=== PATIENT | male | born 1975 | race Caucasian/White ===

== ENCOUNTER 2025-06-02 19:51 | Inpatient (IN) | payer OTHER, SELFPAY ==
[2025-06-02 19:52] VITALS: BP 149/90; PULSE 69; RESP 18; TEMP 37; O2SAT 97; BMI 37.4
[2025-06-02 20:12] LABS: Mucous, Urine 0 SEEN /hpf (<or=2+); Squamous Epithelial Cells - UA 0 SEEN /hpf (0-5)
[2025-06-02 20:13] LABS: Hematocrit 42.7 % (40-54); Hemoglobin 15.1 g/dL (13.0-16.5); Immature Granulocytes Count 0.020 X10^3/uL (0.0-0.0); Mean Corp Hgb Conc 35.4 g/dL (32-36); Mean Corpuscular Volume 85.9 fL (80-94); Mean Platelet Vol. 10.2 fl (6.2-12.0); NRBC Flagged by Analyzer 0 % (0-5); Platelet Count 202 K/mm3 (150-450); RBC Distribution Width CV 12.8 % (11.6-14.6); RBC Distribution Width SD 39.7 fl (35.1-43.9); Red Blood Count 4.97 M/mm3 (4.6-6.2); White Blood Count 6.6 K/mm3 (4.4-11.0)
[2025-06-02 20:33] LABS: AST(SGOT) 111 U/L (<=37); Alanine Aminotransfer ALT/SGPT 134 U/L (<=46); Albumin, Serum 4.7 g/dL (3.5-5.0); Alkaline Phosphatase 95 U/L (40-129); Anion Gap 12 (5-15); BUN 25 mg/dL (4-19); BUN/Creat Ratio 29.0 RATIO (10-20); Calcium,Total 9.6 mg/dL (7.6-11.0); Carbon Dioxide 27.4 mmol/L (21.0-32.0); Chloride 102 mmol/L (98-108); Estimated Creatinine Clearance 87.04 ml/min (50-250); Globulin 3.1 g/dL (2.2-4.2); Glucose 147 mg/dL (70-99); Lipase 59 U/L (13-75); Potassium 3.9 mmol/L (3.3-5.1)
--- NOTE | 2025-06-02 20:40 | US_ITS ---
PROCEDURE: GALLBLADDER 06/02/2025 REASON FOR EXAM: PAIN TECHNIQUE: Procedure Code: USGB Modality: US Procedure: GALLBLADDER FINDINGS: Liver: Diffuse increased echogenicity throughout the liver likely represents fatty infiltration. The liver is normal in size, without a focal lesion. Gallbladder: At least 1 shadowing stone is noted within the gallbladder. No gallbladder wall thickening. Common bile duct: 3.4 mm in diameter, within normal limits . Pancreas: Unremarkable. Other: The right kidney is normal in size, shape, and echotexture, without a focal lesion nor hydronephrosis. US/Gallbladder IMPRESSION: Cholelithiasis. Fatty liver. Reading Location: [id number]
--- NOTE | 2025-06-02 20:40 | ED.VIS.GI ---
HPI HPI - GI History of Present Illness Chief Complaint: Abd Pain Detail of Chief Complaint: Abdominal pain Informant: patient Narrative Narrative: Patient presents with abdominal pain that started around 6:30 PM after eating a meal. Patient described nausea and dry heaves. Has had intermittently pain after eating spicy greasy foods. The pain at times would radiate up into his chest. Patient has had prior appendectomy. Denies any fevers. He has history of hypertension and high cholesterol. PFSH PFSH Allergy/AdvReac Type Severity Reaction Status Date / Time No Known Allergies Allergy Verified 06/02/25 19:54 Social History Smoking Status: Never smoker ROS ROS ED Review of Systems ROS Unobtainable: other Constitutional Constitutional ED: Reports lethargy; Denies chills, fever(s), sweats or weight loss Eyes Eyes: Denies blurry vision, change in vision or diplopia ENT ENT ED: Denies rhinorrhea or sore throat Cardiovascular Cardiovascular: Reports chest pain; Denies orthopnea or racing heartbeat Respiratory/Chest Respiratory/Chest: Denies cough, dyspnea, dyspnea on exertion, orthopnea or sputum Gastrointestinal Gastrointestinal: Reports abdominal pain and nausea; Denies diarrhea or vomiting Genitourinary Genitourinary ED: Denies dysuria, hematuria or urinary frequency Musculoskeletal Musculoskeletal: Denies arthralgias, back pain, myalgias or neck pain Integumentary Denies abscess, Abrasions or rash Neurologic Neurologic: Denies headache(s) or weakness Psychiatric Psychiatric: Denies anxiety, depression or suicidal thoughts Endocrine Endocrinology: Denies polydipsia, polyphagia or polyuria Hematologic/Lymphatic Hematologic/Lymphatic: Denies easy bleeding, easy bruising or lymphadenopathy Allergic/Immunologic Allergic/Immunologic ED: Denies mouth swelling, tongue swelling or urticaria EXAM Physical Exam Const Vital Signs: 06/02/25 19:52 06/02/25 21:57 06/02/25 22:00 Temperature 98.6 F Temperature Source Temporal Pulse Rate 69 Respiratory Rate 18 Blood Pressure 149/90 H 133/84 H Blood Pressure Mean 109 97 Pulse Ox 97 98 96 Oxygen Delivery Method Room Air 06/02/25 22:15 06/02/25 22:30 06/02/25 23:08 Temperature Temperature Source Pulse Rate 78 Respiratory Rate 17 Blood Pressure 122/77 H Blood Pressure Mean 91 Pulse Ox 94 95 100 Oxygen Delivery Method Positive well nourished and well developed General Appearance ED: well developed and NAD HEENT Reports TM's clear and moist mucous membranes normocephalic and atraumatic; Negative for trauma or tenderness Tympanic Membrane ED: Yes TM's clear Eyes PERRL and EOMs intact bilaterally General Eye ED: Negative for pale conjunctiva or scleral icterus Neck no lymphadenopathy, supple and no JVD General: Negative for tenderness Chest Wall inspection of chest normal and palpation of chest normal Chest: Negative for tenderness Resp normal respiratory effort and clear to auscultation bilaterally Effort and Inspection: Negative for respiratory distress or pain with movement Auscultation: Negative for rhonchi, wheezes or diminished lung sounds Cardio regular rate, regular rhythm, S1 normal heart sound, S2 normal heart sound and no murmurs Peripheral Pulses: pulses 2+ throughout GI normal to inspection, nondistended, normoactive bowel sounds, soft to palpation, non-tender and no masses GI Narrative: Tenderness palpation over the right upper quadrant with some guarding. Also some mid abdomen tenderness on exam. No rebound or rigidity or peritoneal signs. Back/Spine no CVA tenderness and no thoracic nor lumbar tenderness Extremity normal to inspection General Extremety ED: Negative for edema General Extremity: Negative for edema Neuro oriented x3, CN's II-XII intact bilaterally, no sensory deficits noted and gait normal Sensorium / Orientation: awake, alert, oriented to person, oriented to place and oriented to time Motor Exam: strength 5/5 throughout and strength abnormal Psych mental status grossly normal Skin no rashes or lesions noted and no wounds MDM MDM MDM Narrative Medical decision making narrative: Patient presents with abdominal pain after eating. Similar episodes in the past. No fever. Has had vomiting and dry heaves. IV line established. Medicated with morphine and Zofran. CBC with differential obtained showed white count 6.6 with hemoglobin 15 and platelet count of 202. Chemistries unremarkable. LFTs show total bilirubin of 0.64 with an AST of 111 and ALT of 134. Troponin less than 6. EKG obtained on arrival showed a sinus rhythm with ventricular rate of 73 bpm with no acute ST segment changes. Urinalysis was normal. Gallbladder ultrasound initially obtained showed gallstones and no other abnormalities. CT scan of the abdomen pelvis with IV contrast showed cholelithiasis with Michael cholecystic edema and recommended correlation clinically for cholecystitis. Patient also had increased small bowel fluid which is nonspecific and can be seen with enteritis related dysmotility or or malabsorption or ileus. Case discussed with general surgeon on-call Dr. Cartagena who will admit patient to the hospital. Lab Data Attestation: I reviewed the patient's lab results. Labs: Laboratory Results - last 24 hr 06/02/25 06/02/25 20:05 20:55 WBC 6.6 RBC 4.97 Hgb 15.1 Hct 42.7 MCV 85.9 MCH 30.4 MCHC 35.4 RDW Std Deviation 39.7 RDW Coeff of Craig 12.8 Plt Count 202 MPV 10.2 Immature Gran % (Auto) 0.300 Neut % (Auto) 58.2 Lymph % (Auto) 30.8 [place] % (Auto) 8.4 Eos % (Auto) 1.4 Baso % (Auto) 0.9 Absolute Neuts (auto) 3.8 Absolute Lymphs (auto) 2.02 Nucleated RBC % 0 Sodium 141 Potassium 3.9 Chloride 102 Carbon Dioxide 27.4 Anion Gap 12 BUN 25 H Creatinine 0.86 Estim Creat Clear Calc 87.04 Est GFR (MDRD) Non-Af 106 BUN/Creatinine Ratio 29.0 H Glucose 147 H Calcium 9.6 Total Bilirubin 0.64 AST 111 H ALT 134 H Alkaline Phosphatase 95 Troponin T High Sens < 6 Total Protein 7.9 Albumin 4.7 Globulin 3.1 Albumin/Globulin Ratio 1.5 Lipase 59 57 Urine Color Yellow Urine Clarity Clear Urine pH 6.0 Ur Specific [place] 1.025 Urine Protein 15 H Urine Glucose (UA) Normal Urine Ketones Negative Urine Occult Blood Negative Urine Nitrite Negative Urine Bilirubin Negative Urine Urobilinogen Normal Ur Leukocyte Esterase Negative Urine RBC 0-5 SEEN Urine WBC 0-5 SEEN Ur Squamous Epith Cells 0 SEEN Urine Bacteria 0 SEEN Urine Mucus 0 SEEN Radiography Diagnostic Testing: Clinical Impression(s) from Imaging Studies Gallbladder Ultrasound 06/02/25 20:40 IMPRESSION: Cholelithiasis. Fatty liver. Reading Location: [id number] Abdomen/Pelvis CT 06/02/25 22:30 IMPRESSION: 1. Cholelithiasis with mild pericholecystic edema. Correlate clinically for signs of cholecystitis. 2. Increased small bowel fluid, which is nonspecific and can be seen with enteritis related dysmotility, malabsorption, or an ileus. 3. Colonic diverticulosis without signs of diverticulitis. Reading Location: [id number] Discharge Plan Dx/Rx/DC Orders Clinical Impression: Abdominal pain, Cholelithiasis, Ileus Disposition Disposition: Acute Care Hospital [facility], [place]
--- NOTE | 2025-06-02 20:41 | EKG12_ITS ---
Test Reason : DYSRHYTHMIA Blood Pressure : */* mmHG Vent. Rate : 73 BPM Atrial Rate : 73 BPM P-R Int : 158 ms QRS Dur : 90 ms QT Int : 398 ms P-R-T Axes : 53 21 7 degrees QTcB Int : 438 ms Normal sinus rhythm Inferior infarct , age undetermined Abnormal ECG Confirmed by GUILLE PALACIOS, SHEILA ([id number]), tape editor BEATRIZ TAFOYA ([id number]) on 06/06/2025 6:31:09 AM Referred By: Confirmed By: SHEILA HAN MD
[2025-06-02 20:43] LABS: Color, Urine Yellow (Yellow); Glucose, Dipstick Normal (Normal); Ketone-Dipstick Negative (Negative); Leukocyte Esterase-Dipstick Negative /ul (Negative); Nitrite-Dipstick Negative (Negative); Occult Blood-Urine Negative /ul (Negative); Protein-Dipstick 15 mg/dl (Negative); Specific Gravity, Urine 1.025 (1.002-1.030); Urine Bilirubin Dipstick Negative (Negative)
[2025-06-02] MEDS: 0.9% Normal Saline (1000mL) 1,000 ML 125 ML IV (20:53)
[2025-06-02 21:01] LABS: Red Blood Cells-Urine 0-5 SEEN /hpf (0-5)
[2025-06-02 21:25] LABS: Lipase 57 U/L (13-75)
[2025-06-02 21:38] LABS: Troponin T High Sensitivity < 6 ng/L (<=22)
[2025-06-02 21:57] VITALS: O2SAT 98
[2025-06-02 22:00] VITALS: BP 133/84; O2SAT 96
[2025-06-02 22:15] VITALS: O2SAT 94
[2025-06-02 22:30] VITALS: BP 122/77; PULSE 78; RESP 17; O2SAT 95
--- NOTE | 2025-06-02 22:30 | CT_ITS ---
PROCEDURE: ABDOMEN/PELVIS W IV CONT ONLY 06/02/2025 REASON FOR EXAM: ABDOMINAL PAIN TECHNIQUE: Procedure Code: [id number] Modality: CT Procedure: ABDOMEN/PELVIS W IV CONT ONLY Coronal and Sagittal reconstruction series were provided. CONTRAST: Isovue 370 VOLUME: 85 mL One or more dose reduction techniques were used (e.g., Automated exposure control, adjustment of the mA and/or kV according to patient size, use of iterative reconstruction technique. RADIATION DOSE SUMMARY: CTDlvol: 9.97, 13.26 mGy DLP: 729 mGycm COMPARISON: None. FINDINGS: LUNG BASES: No pleural effusion. Mild atelectasis bilaterally. LIVER: Few small hypodense lesions, the largest is 0.3 cm, too small to definitively characterize. GALLBLADDER: Few calcified stones with mild pericholecystic edema. BILE DUCTS: No ductal dilation. PANCREAS: Unremarkable. SPLEEN: Unremarkable. ADRENAL GLANDS: Unremarkable. KIDNEYS: The kidneys enhance symmetrically. Hypodense 0.7 cm focus in the upper right kidney, likely a cyst. No hydronephrosis or hydroureter. STOMACH AND BOWEL: Normal caliber small bowel with increased fluid distally. No obstruction or perforation. No wall thickening. Colonic diverticulosis. No CT evidence of colitis or acute diverticulitis. APPENDIX: Surgical clips along the cecal tip, query prior appendectomy. RETRO/PERITONEUM: No free fluid. No free air. LYMPH NODES: No lymphadenopathy. PELVIC ORGANS: Mild prostatic enlargement, indenting on the base of the urinary bladder. The urinary bladder otherwise appears normal. VASCULATURE: No aortic aneurysm. ABDOMINAL WALL AND SOFT TISSUES: Small fat-containing left inguinal hernia. BONES: No fracture or suspicious osseous abnormality. CT/Abdomen/Pelvis W IV Cont ONLY IMPRESSION: 1. Cholelithiasis with mild pericholecystic edema. Correlate clinically for s igns of cholecystitis. 2. Increased small bowel fluid, which is nonspecific and can be seen with ente ritis related dysmotility, malabsorption, or an ileus. 3. Colonic diverticulosis without signs of diverticulitis. Reading Location: [facility]
[2025-06-02 23:08] VITALS: O2SAT 100
[2025-06-03] VITALS (18 sets, daily range): BP systolic 122–149; BP diastolic 77–96; PULSE 65–79; RESP 14–18; TEMP 36.4–37; O2SAT 90–100; BMI 34.2
[2025-06-03] MEDS: Piperacil/Tazobactam 3.375 GM in 0.9% Normal Saline (50mL MB+) 50 ML IV (01:48)
[2025-06-03] MEDS: 0.9% Normal Saline (1000mL) 1,000 ML 100 ML IV ×2 (07:01→17:15)
--- NOTE | 2025-06-03 07:20 | PCM.HP.STD ---
HPI - General General Date of Admission: 06/03/25 HPI Narrative ABE SMALLWOOD, is a 49 M who presents with upper abdominal pain. Patient notes that started last night but he does say he has been having episodes of this pain and he had an episode recently on Friday where he did not feel well on Friday. He does report nausea with dry heaving [facility], [facility] Medical History (Updated 06/03/25 @ 00:39 by Pete Andrew) Hypertension Home Medications ?Medication ?Instructions ?Recorded ?Last Taken ?Type amoxicillin 500 mg capsule 500 mg PO BID sinus infection 06/02/25 06/02/25 History Allergy/AdvReac Type Severity Reaction Status Date / Time No Known Allergies Allergy Verified 06/02/25 19:54 Surgical History (Updated 06/03/25 @ 00:39 by Pete Andrew) History of appendectomy Social History Smoking Status: Never smoker ROS Constitutional Constitutional: Denies anorexia, chills, fatigue or fever(s) Eyes Eyes: Denies blurry vision ENT HEENT: Denies abnormal hearing Cardiovascular Cardiovascular: Denies chest pain Respiratory/Chest Respiratory/Chest: Denies cough or dyspnea Gastrointestinal Gastrointestinal: Reports abdominal pain, nausea and vomiting Genitourinary Genitourinary: Denies change in urinary stream Musculoskeletal Musculoskeletal: Denies abnormal gait Integumentary Integumentary: Denies jaundice or new lesions Neurologic Neurologic: Denies abnormal gait Psychiatric Psychiatric: Denies anxiety Endocrine Endocrinology: Denies flushing Vital Signs Vital Signs Vital Signs: 06/02/25 19:52 06/02/25 21:57 06/02/25 22:00 Temperature 98.6 F Temperature Source Temporal Pulse Rate 69 Respiratory Rate 18 Blood Pressure 149/90 H 133/84 H Blood Pressure Mean 109 97 Blood Pressure Source Blood Pressure Position Blood Pressure Location Pulse Ox 97 98 96 Oxygen Delivery Method Room Air 06/02/25 22:15 06/02/25 22:30 06/02/25 23:08 Temperature Temperature Source Pulse Rate 78 Respiratory Rate 17 Blood Pressure 122/77 H Blood Pressure Mean 91 Blood Pressure Source Blood Pressure Position Blood Pressure Location Pulse Ox 94 95 100 Oxygen Delivery Method 06/03/25 00:06 06/03/25 00:24 06/03/25 04:18 Temperature 98.6 F 97.8 F 98.1 F Temperature Source Oral Oral Pulse Rate 78 66 65 Respiratory Rate 17 18 16 Blood Pressure 122/77 H 149/88 H 129/85 H Blood Pressure Mean 92 108 99 Blood Pressure Source Monitor Monitor Blood Pressure Position Supine Semi-Fowlers Blood Pressure Location Left Arm Left Arm Pulse Ox 100 99 97 Oxygen Delivery Method Room Air Room Air Weight Weight: 148 lb 2.41 oz Body Mass Index (BMI) 34.2 Physical Exam Const oriented x3 and no apparent distress Resp normal respiratory effort GI soft to palpation Palpation: tender Positive for epigastric Extremity normal to inspection Results Lab / Micro Data 06/02/25 20:05 06/02/25 20:05 Labs: Laboratory Results - last 24 hr 06/02/25 20:05: WBC 6.6, RBC 4.97, Hgb 15.1, Hct 42.7, MCV 85.9, MCH 30.4, MCHC 35.4, RDW Std Deviation 39.7, RDW Coeff of [place] 12.8, Plt Count 202, MPV 10.2, Immature Gran % (Auto) 0.300, Neut % (Auto) 58.2, Lymph % (Auto) 30.8, [place] % (Auto) 8.4, Eos % (Auto) 1.4, Baso % (Auto) 0.9, Absolute Neuts (auto) 3.8, Absolute Lymphs (auto) 2.02, Nucleated RBC % 0, Sodium 141, Potassium 3.9, Chloride 102, Carbon Dioxide 27.4, Anion Gap 12, BUN 25 H, Creatinine 0.86, Estim Creat Clear Calc 87.04, Est GFR (MDRD) Non-Af 106, BUN/Creatinine Ratio 29.0 H, Glucose 147 H, Calcium 9.6, Total Bilirubin 0.64, AST 111 H, ALT 134 H, Alkaline Phosphatase 95, Total Protein 7.9, Albumin 4.7, Globulin 3.1, Albumin/Globulin Ratio 1.5, Lipase 59, Urine Color Yellow, Urine Clarity Clear, Urine pH 6.0, Ur Specific [place] 1.025, Urine Protein 15 H, Urine Glucose (UA) Normal, Urine Ketones Negative, Urine Occult Blood Negative, Urine Nitrite Negative, Urine Bilirubin Negative, Urine Urobilinogen Normal, Ur Leukocyte Esterase Negative, Urine RBC 0-5 SEEN, Urine WBC 0-5 SEEN, Ur Squamous Epith Cells 0 SEEN, Urine Bacteria 0 SEEN, Urine Mucus 0 SEEN 12/11/25 20:55: Troponin T High Sens < 6, Lipase 57 Imaging Radiology Impression Gallbladder Ultrasound 06/02/25 20:40 IMPRESSION: Cholelithiasis. Fatty liver. Reading Location: [id number] Abdomen/Pelvis CT 06/02/25 22:30 IMPRESSION: 1. Cholelithiasis with mild pericholecystic edema. Correlate clinically for signs of cholecystitis. 2. Increased small bowel fluid, which is nonspecific and can be seen with enteritis related dysmotility, malabsorption, or an ileus. 3. Colonic diverticulosis without signs of diverticulitis. Reading Location: [id number] Assessment & Plan Assessment/Plan (1) Cholelithiasis: PLAN: The patient came in with upper abdominal pain and nausea and vomiting. He does have some liquid filled bowel on CT scan which could indicate ileus. He also has some stranding around his gallbladder with a stone and sludge. He had an ultrasound that showed this gallbladder stone but it did not show wall thickening but the CT scan showed stranding around the gallbladder. This is consistent with his story of intermittent pain with attacks happening over the last 6 months. Patient is still in pain this morning and having to take pain medication. I think the patient has early acute cholecystitis. I discussed this with him and I discussed laparoscopic cholecystectomy. I discussed the procedure in detail with the patient. I discussed the risks, benefits, and alternatives of the procedure. I discussed the risks including but not limited to bleeding, infection, injury to surrounding organs such as the liver, bile duct, bowels. I did discuss the possibility of having to convert to an open procedure as well as the possibility that if any injuries occurred this may necessitate further surgery at a tertiary care center. Ruben Obrien MD Pager: [facility] [address] [place] [address] Office:
[2025-06-03] MEDS: 0.9% Normal Saline (1000mL) 1,000 ML 15 ML IV (13:11)
--- NOTE | 2025-06-03 13:44 | PCM.PRE.AN2 ---
ASA Classification* ASA Classification ASA Classification: 2 Assessment & Plan Anesthesia* Anesthesia Assessment Anesthesia Assessment: Discussed sedation and/or anesthesia options, risks, benefits, and alternatives with patient/parents/legal guardian/POA. Questions invited. The patient/parents/legal guardian/POA seems to understand and agrees to proceed with anesthesia plan. Reviewed the physical assessment, medical history, allergy history and patient home medications list prior to surgery/procedure/anesthetic and documented any changes. Performed airway and anesthesia risk assessments. Anesthesia Type Anesthesia Type: General Anesthesia Focused Assessment* Temperature: 98.3 F Pulse Rate: 74 Blood Pressure: 140/96 Respiratory Rate: 14 Pulse Ox: 96 Airway Assessment Mouth opens: >3 cm Mallampati Score: II Labs Anesthesia Preop lab: CBC WBC, (4.4-11.0) 6.6 K/mm3 06/02/25, 20:05 RBC, (4.6-6.2) 4.97 M/mm3 06/02/25, 20:05 Hgb, (13.0-16.5) 15.1 g/dL 06/02/25, 20:05 Hct, (40-54) 42.7 % 06/02/25, 20:05 Plt Count, (150-450) 202 K/mm3 06/02/25, 20:05 CHEMISTRY Potassium, (3.3-5.1) 3.9 mmol/L 06/02/25, 20:05 Sodium, (133-145) 141 mmol/L 06/02/25, 20:05 BUN, (4-19) 25 mg/dL H 06/02/25, 20:05 Creatinine, (0.70-1.20) 0.86 mg/dL 06/02/25, 20:05 Glucose, (70-99) 147 mg/dL H 06/02/25, 20:05 COAG Pre-Assessment Diagnosis/Proposed Procedure Planned Operative Procedure(s): Laparoscopic cholecystectomy with IntraOp cholangiograms Anesthesia History 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 When Was Last Pacemaker Check QUESTION #4 FULL TEXT: You/Your Family Experience fever (hyperthermia) with Anesthesia Last Oral Intake Last Oral intake: Last Oral Intake NPO since 00:00 06/03/25 10:03 Meds taken in AM with sips of No 06/03/25 10:03 water? 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 helper: PONV - truck crane operator helper Female HX of Motion Sickness HX of N/V After Surgery Non-Smoker Duration of Surgery greater than 60 minutes Number of Risk Factors PONV Score Height & Weight Height & Weight: Anesthesia: Height & Weight Height 4 ft 7.12 in 06/03/25 10:03 Weight: 67.2 kg 06/03/25 10:03 Body Mass Index (BMI) 34.2 06/03/25 10:03 Respiratory Assessment Respiratory Assessment - truck crane operator helper: Respiratory Tract Infection Hx - truck crane operator helper Hx Respiratory Tract Infection Yes: recent sinus infection, 06/03/25 10:03 finished atb-yesterday morning STOP Sleep Apnea STOP Sleep Apnea - truck crane operator helper: STOP Sleep Apnea - truck crane operator helper Hx Hypertension Yes 06/03/25 00:33 Hx Sleep Apnea No 06/03/25 00:33 CPAP BIPAP Do you snore loudly (louder Yes 06/03/25 00:33 than talking or can be heard Do you often feel tired/ No 06/03/25 00:33 fatigued/ sleepy during daytime? Has anyone observed you stop No 06/03/25 00:33 breathing during sleep? STOP Results Positive 06/03/25 00:33 QUESTION #5 FULL TEXT : Do you snore loudly (louder than talking or can be heard through closed doors)? Tobacco Use History Tobacco Use History - truck crane operator helper: Tobacco Use History - truck crane operator helper Tobacco Use Smoking Status Never smoker 06/03/25 00:33 Hx Tobacco Use No 06/03/25 00:33 Years Smoking Packs Smoked per Day Smoking Cessation Date was within the last 15 years Hx Smoking Cessation Date Hx Smoking Cessation Counseling Hematologic Medial History Hematologic Hx - truck crane operator helper: Hematologic Medical Hx - physical therapy aid Hx of Blood Transfusion No 06/03/25 00:33 Hx of Transfusion in last 3 No 06/03/25 00:33 Months Date of Last Transfusion (if within last 3 months) Ever experience any problems No 06/03/25 00:33 with transfusion(s)? Specify any problems Hx of Preganancy in last 3 N/A 06/03/25 00:33 Months Nurse Filling Out Transfusion CSIGNORIN 06/03/25 00:33 & Questions: Date: 06/03/25 06/03/25 00:33 Time: 00:35 06/03/25 00:33 Patient unable to answer at this time (ie. confused, unrespo /Reproduction History /Reproductive History - truck crane operator helper: /Reproductive Hx- truck crane operator helper Hx Now No 06/03/25 10:03 Gestational Age (in weeks): EDC: Hx Hx Para Hx Section SAB No 06/03/25 10:03 Does the father of the baby or his family experience fever w Father of the baby Malignant Hypertension history comment Active Medications Active Medications: Current Medications Generic Name Dose Route Start Last Admin Trade Name Freq PRN Reason Stop Dose Admin Sodium Chloride 250 mls @ 15 mls/hr 06/03/25 00:27 IV .[id number] PRN Saline Flush Sodium Chloride 250 mls @ 15 mls/hr 06/03/25 00:27 IV .[id number] PRN Additional IVPB Infusion Piperacillin Sod/Tazobactam 50 mls @ 12.5 mls/hr 06/03/25 01:31 06/03/25 07:01 Sod 3.375 gm/ Sodium Chloride IV Infused Q8 FAUSTO Infusion Sodium Chloride 1,000 mls @ 100 mls/hr 06/03/25 06:10 06/03/25 12:45 IV 0 mls/hr .Q10H FAUSTO Infusion Sodium Chloride 1,000 mls @ 15 mls/hr 06/03/25 13:05 06/03/25 13:11 IV 15 mls/hr .Q48H FAUSTO Administration Morphine Sulfate 2 - 4 mg 06/03/25 01:22 06/03/25 01:48 Morphine 4 Mg/Ml Syringe IV 2 mg Q2H PRN PRN Administration Pain Score 1-10 Ondansetron HCl 4 mg 12/12/25 01:27 Ondansetron 4 Mg/2 Ml Vial IV Q8H PRN PRN NAUSEA/VOMITING Sodium Chloride 10 - 40 ml 06/03/25 00:27 0.9% Saline Lock 10 Ml Syringe IV UD PRN SALINE FLUSH PFSH Medical History Hypertension Home Medications ?Medication ?Instructions ?Recorded ?Last Taken ?Type amoxicillin 500 mg capsule 500 mg PO BID sinus infection 06/02/25 06/02/25 History Allergy/AdvReac Type Severity Reaction Status Date / Time No Known Allergies Allergy Verified 06/02/25 19:54 Surgical History History of appendectomy Social History Smoking Status: Never smoker Review of Systems (Anesthesia) ROS Narrative System reviewed and no additional complaints, except as documented.
[2025-06-03] MEDS: Midazolam 2 MG/2 ML Syringe IV (13:55)
[2025-06-03] MEDS: Piperacil/Tazobactam 3.375 GM/50 ML ML IV (14:00)
[2025-06-03] MEDS: Lidocaine 1% (5 ml sdv) 5 ML Vial 10 ML IV (14:05)
--- NOTE | 2025-06-03 14:07 | CASEMGMT ---
Dx:acute cholecystitis LACE:1 6-Clicks:24 Medical record reviewed and patient evaluated for identification of discharge planning needs. Based on this review, at this time criteria are not present to indicate a need for discharge planning. Will remain available to assist with discharge planning needs as identified or requested.
[2025-06-03] MEDS: fentaNYL 100 MCG/2 ML Ampul IV (14:12)
--- NOTE | 2025-06-03 14:20 | RAD_ITS ---
PROCEDURE: CHOLANGIOGRAM/ O R,INITIAL; O.R. FLUORO FOR C-ARM 06/03/2025 REASON FOR EXAM: DIDI Intraoperative cholangiogram TECHNIQUE: Procedure Code: RADJEANETH; TYMANL_C_ARM Modality: DX Procedure: CHOLANGIOGRAM/ O R,INITIAL; O.R. FLUORO FOR C-ARM Fluoroscopy time: 12.4 seconds. Dose: 4.57 mGy. RAD/O.R. Fluoro for C-Arm IMPRESSION: Fluoroscopy was performed for intraoperative cholangiogram. Extensive sonograp hic images were also obtained. Reading Location: [id number]
--- NOTE | 2025-06-03 14:20 | RAD_ITS ---
PROCEDURE: CHOLANGIOGRAM/ O R,INITIAL; O.R. FLUORO FOR C-ARM 06/03/2025 REASON FOR EXAM: DIDI Intraoperative cholangiogram TECHNIQUE: Procedure Code: RADJEANETH; RADMANL_C_ARM Modality: DX Procedure: CHOLANGIOGRAM/ O R,INITIAL; O.R. FLUORO FOR C-ARM Fluoroscopy time: 12.4 seconds. Dose: 4.57 mGy. RAD/Cholangiogram/ O R,Initial IMPRESSION: Fluoroscopy was performed for intraoperative cholangiogram. Extensive sonograp hic images were also obtained. Reading Location: [id number]
--- NOTE | 2025-06-03 14:30 | GALL_PTH ---
PATIENT: ABE SMALLWOOD LOC: MS3 U#:[id number] AGE/SX: 49/M ROOM: DE312 RE06/03/[address]: Dr. Ruben Obrien MD : 1975 BED: 1 DIS: 06/03/2025 SPEC #: [id number] RECD: 06/03/25 15:34 STATUS: MANUEL MAJOR #: [id number] SANDRINE: 06/03/25 14:[address]: Ruben Obrien DEPT: SURGICAL PATHOLOGY RECD BY: Beatriz Cloud ENTERED: 06/06/25 09:22 SP TYPE: CHANTE TIPTON DR: NOT DEFINED Tissues: Gallbladder, NOS Procedures: Surgery Specimen Level III HEADER OPERATION: Laparoscopic cholecystectomy with IOC PRE-OP DIAGNOSIS: Cholecystitis, cholelithiasis TISSUE SUBMITTED: A- Gallbladder MICROSCOPIC DIAGNOSIS A. Gallbladder, cholecystectomy: - Acute on chronic cholecystitis with cholelithiasis and cholesterolosis. MICROSCOPIC DESCRIPTION Slides are reviewed. GROSS DESCRIPTION A. Received in formalin labeled with the patient's name and date of . Designated as gallbladder is a 6.6 x 2.7 x 2.3 cm green, intact and distended gallbladder with attached patent cystic duct (inked black, shaved). A lymph node is not present. Opening reveals dark green, tenacious bile and few irregular bile-stained choleliths, ranging 0.4 cm to 1.1 cm. The mucosa is green and granular with a maximum wall thickness of 0.3 cm. Cholesterolosis is present. Recreation Therapy Teacher sections are submitted in 1 [facility] 06/06/2025 CPT:[id number]
[2025-06-03] MEDS: Bupiv/Epi 0.25% 30 ML Vial (14:43)
--- NOTE | 2025-06-03 14:50 | OP.PCM_ITS ---
Operative Report (Standard) Operative Information Date of Procedure: 06/03/25 Pre-Operative Diagnosis: Acute cholecystitis Post-Operative Diagnosis: Acute cholecystitis Surgery/Procedure Performed: Laparoscopic cholecystectomy with cholangiograms laundry operator finishing: Yes Correctional Case Manager: Lissette Cheatham Tasks completed by director of first impressions: Opening & closing and Retracting Type of Anesthesia: General/Regional RN Documented Start/Stop Times: Operation Date: 06/03/25 14:30 Case Time Into Pre-Op 06/03/25 13:00 Anesthesia Start 06/03/25 13:53 Into Room 06/03/25 13:53 Procedure Start 06/03/25 14:14 Procedure Start Time: 14:14 Procedure Stop Time: 15:00 Select all DRAINS/GRAFTS/IMPLANTS that apply: None Estimated Blood Loss: 10 Specimen collected: Yes Description of specimen(s) removed: Gallbladder Description of surgery: After obtaining informed consent patient was brought back to the operating room. General anesthesia was induced. The abdomen was prepped and draped in usual sterile fashion. A small midline incision was made superior to the umbilicus and deepened to the level of fascia. The fascia was elevated and incised. Next the peritoneum was elevated and incised in the same fashion. Finger sweep was performed and the Schuster trocar was placed into the abdomen. The balloon was inflated. The abdomen was inflated to 15 mmHg. Next a camera was introduced into the abdomen and the abdomen was inspected. Next under direct visualization three 5-mm ports were placed one subxiphoid and 2 subcostal. Next the gallbla dder was elevated and retracted toward the right shoulder. The peritoneum was stripped from the gallbladder. The infundibulum was located and retracted laterally. Next the triangle of Calot was dissected and the cystic duct and cystic artery were identified. Cholangiograms were performed. The Noel clamp was used to clamp across the infundibulum and the catheter needle was inserted into the gallbladder. Under fluoroscopy contrast was instilled into the gallbladder and the common duct, cystic duct as well as proximal hepatic ducts were identified. There was good filling of the duodenum. There were no filling defects noted in the common bile duct. The clamp was removed as well as the needle and the infundibulum was grasped once more. Three hemolock clips were placed across the cystic duct. The cystic duct was then divided leaving 2 clips on the stump. The cystic artery was clipped and divided in the same fashion. The hook cautery was then used to take the gallbladder off of the gallbladder bed. Hemostasis was obtained. Gallbladder fossa was irrigated and no active bleeding or bile leakage was noted. Next the camera was introduced in the subxiphoid port. An Endopouch bag was placed through the umbilical port and the gallbladder was placed into it. The gallbladder was then removed through the umbilical incision. The camera was then reinserted through the umbilical port. The gallbladder fossa was inspected once more and noted to be hemostatic with no leaking bile. The abdomen was suctioned dry. The 5 mm ports were removed under direct visualization. The umbilical port was then removed and the air was removed from the abdomen. Next using an 0 Vicryl suture the umbilical fascia was closed in a [id number] fashion. The umbilical port site was irrigated local anesthetic was administered to all the incisions. All the incisions were closed with interrupted subcuticular 4-0 Monocryl sutures followed by Steri- Strips and dressings. The patient was awoken and taken to PACU in stable condition. Surgical Findings: Inflamed gallbladder, normal IOC Complications Complications: No Admit VTE Documentation VTE Mechan Device Prophylaxis: SCD's
--- NOTE | 2025-06-03 14:52 | PCM.DC.SUM ---
Providers Date of Admission: 06/03/25 Primary Care Physician: NOT DEFINED Reason For Visit: ACUTE CHOLECYSTITIS Diagnosis Discharge Diagnosis (1) Cholelithiasis: Status: Acute Code(s): K80.20 - Calculus of gallbladder without cholecystitis without obstruction Plan: The patient came in with upper abdominal pain and nausea and vomiting. He does have some liquid filled bowel on CT scan which could indicate ileus. He also has some stranding around his gallbladder with a stone and sludge. He had an ultrasound that showed this gallbladder stone but it did not show wall thickening but the CT scan showed stranding around the gallbladder. This is consistent with his story of intermittent pain with attacks happening over the last 6 months. Patient is still in pain this morning and having to take pain medication. I think the patient has early acute cholecystitis. I discussed this with him and I discussed laparoscopic cholecystectomy. I discussed the procedure in detail with the patient. I discussed the risks, benefits, and alternatives of the procedure. I discussed the risks including but not limited to bleeding, infection, injury to surrounding organs such as the liver, bile duct, bowels. I did discuss the possibility of having to convert to an open procedure as well as the possibility that if any injuries occurred this may necessitate further surgery at a tertiary care center. Ruben Obrien MD Pager: [phone] [address] [place] [address] [address] [place] [address] Office: Medications at Discharge Home Medications amoxicillin 500 mg capsule 500 mg PO BID sinus infection 06/02/25 acetaminophen 325 mg tablet 650 mg (2 x 325 mg) PO Q4H PRN PRN Pain 1-10 Or Fever #0 tabs 06/03/25 oxycodone 5 mg tablet 5 - 10 mg (1 - 2 x 5 mg) PO Q4H PRN PRN Pain Score 4-10 5 days #14 tabs 06/03/25 Hospital Course Operations cholecystecomy Procedures None Summary of Care Provided Hospital Course: Patient was admitted with acute cholecystitis. The following morning he was taken for laparoscopic cholecystectomy. Once tolerating diet he will be discharged home. Weight / BMI Weight Weight: 148 lb 2.41 oz Body Mass Index (BMI) 34.2 ABG / Lab / Microbiology Data 06/02/25 20:05 06/02/25 20:05 Laboratory: Laboratory Results - last 24 hr 06/02/25 20:05: WBC 6.6, RBC 4.97, Hgb 15.1, Hct 42.7, MCV 85.9, MCH 30.4, MCHC 35.4, RDW Std Deviation 39.7, RDW Coeff of Craig 12.8, Plt Count 202, MPV 10.2, Immature Gran % (Auto) 0.300, Neut % (Auto) 58.2, Lymph % (Auto) 30.8, [place] % (Auto) 8.4, Eos % (Auto) 1.4, Baso % (Auto) 0.9, Absolute Neuts (auto) 3.8, Absolute Lymphs (auto) 2.02, Nucleated RBC % 0, Sodium 141, Potassium 3.9, Chloride 102, Carbon Dioxide 27.4, Anion Gap 12, BUN 25 H, Creatinine 0.86, Estim Creat Clear Calc 87.04, Est GFR (MDRD) Non-Af 106, BUN/Creatinine Ratio 29.0 H, Glucose 147 H, Calcium 9.6, Total Bilirubin 0.64, AST 111 H, ALT 134 H, Alkaline Phosphatase 95, Total Protein 7.9, Albumin 4.7, Globulin 3.1, Albumin/Globulin Ratio 1.5, Lipase 59, Urine Color Yellow, Urine Clarity Clear, Urine pH 6.0, Ur Specific [place] 1.025, Urine Protein 15 H, Urine Glucose (UA) Normal, Urine Ketones Negative, Urine Occult Blood Negative, Urine Nitrite Negative, Urine Bilirubin Negative, Urine Urobilinogen Normal, Ur Leukocyte Esterase Negative, Urine RBC 0-5 SEEN, Urine WBC 0-5 SEEN, Ur Squamous Epith Cells 0 SEEN, Urine Bacteria 0 SEEN, Urine Mucus 0 SEEN 06/02/25 20:55: Troponin T High Sens < 6, Lipase 57 Radiography Diagnostic Testing: Radiology Impression Gallbladder Ultrasound 06/02/25 20:40 IMPRESSION: Cholelithiasis. Fatty liver. Reading Location: [id number] Abdomen/Pelvis CT 06/02/25 22:30 IMPRESSION: 1. Cholelithiasis with mild pericholecystic edema. Correlate clinically for signs of cholecystitis. 2. Increased small bowel fluid, which is nonspecific and can be seen with enteritis related dysmotility, malabsorption, or an ileus. 3. Colonic diverticulosis without signs of diverticulitis. Reading Location: [facility] D/C Instructions Discharge Activity: May Not Drive (for 2-3 days or while taking narcotic pain medications.) and - (Do not drive, work heavy equipment or sign legal documents for 24 hours.) May shower in (days): 1 Lifting Restrictions: 20 lbs for 2 weeks Additional Activity Instructions: Pain medication may cause nausea. You should typically eat light foods as you take your pain medications. Pain medication may also cause constipation. If this is a problem for you, please discuss with your doctor. Alternate ibuprofen and Tylenol for pain control, oxycodone for breakthrough pain Call your doctor if your incision/area has: Continuous Slow Oozing, Sudden Increased Bleeding, Increased Pain/ Swelling, Increased Redness and Foul Smelling Discharge Call your doctor if you observe: Fever of 101 or Higher Suture Line Care: Avoid Pulling/Pushing and Avoid Pinching/Bending Remove Dressing in: 2 days Additional Dressing/Incision Instructions: Leave operative bandaids on for 2 days. When you remove dressing, leave Steri-Strips on until your follow-up appointment, or until the Steri-Strips fall off on their own. DC O2, CPAP, BIPAP Needs Home O2 Discharge instructions: No Please Follow Up With: Ruben Obrien MD When: Please call to schedule 2 week follow up appointment. [phone] Meaningful Use Info Meaningful Use Meaningful Use Diagnoses (Choose all that apply): None applicable Discharge Plan Admission Admit Date/Time: 06/03/25 01:21 Attending Provider: Ruben Obrien Primary Care Provider: NOT,DEFINED Discharge Orders/Prescriptions Prescriptions: New acetaminophen 325 mg Tablet 650 mg PO Q4H PRN PRN (Reason: Pain 1-10 Or Fever) Qty: 0 0RF oxycodone 5 mg Tablet 5 - 10 mg PO Q4H PRN PRN (Reason: Pain Score 4-10) 5 Days Qty: 14 0RF Continued amoxicillin 500 mg capsule 500 mg PO BID Referrals / Follow Up: NOT,DEFINED [Primary Care Provider, None] Disposition Disposition (needs filled in before D/C Order can be placed): Home, Self Care
--- NOTE | 2025-06-03 15:26 | PCM.POST.ANE ---
Anesthesia: Postop Eval I Current Vital Signs Temperature: 98.1 F Pulse Rate: 71 Blood Pressure: 131/88 Respiratory Rate: 16 Pulse Ox: 94 Oxygen Delivery Method: Nasal Cannula Oxygen Flow Rate (L/min): 4 Assessment Airway patent: Yes Spontaneous unlabored respirations: Yes Mental status: Awake and Calm nausea: No Vomiting: No Anesthesia Complication: No Fluid Hydration Crystalloid volume administer (ml): 1,100 Total IV fluid infused: 1,100 Progress Note Anesthesia document: Postop Eval 1 completed: Yes
--- NOTE | 2025-06-03 15:52 | POSTOPAN2_ITS ---
Anesthesia Postop Eval I Sum Postop Eval Completion status Anesthesia document: Postop Eval 1 completed: Yes Anesthesia Postop Eval I Summary Anesthesia Postop Eval I Summary: Anesthesia Postop Eval I: Assessment Summary Airway patent Yes 06/03/25 15:27 [email or web address] Spontaneous unlabored Yes 06/03/25 15:27 [email or web address] respirations Mental status Awake,Calm 06/03/25 15:27 [email or web address] nausea No 06/03/25 15:27 [email or web address] Vomiting No 06/03/25 15:27 [email or web address] Anesthesia Postop Eval I: Fluid Summary Crystalloid volume administer 1,100 06/03/25 15:27 [email or web address] [email or web address] (ml) Colloids volume administered ( ml) Blood Product volume administered (ml) Total IV fluid infused 1,100 06/03/25 15:27 [email or web address] Anesthesia Postop Eval I: Summary Notes Anesthesia Complication No 06/03/25 15:27 [email or web address] Anesthesia Complication Comment: Post-operative progress note Anesthesia: Postop Eval II Evaluation Mental status: Awake Pain Level: 0 nausea: No Vomiting: No
--- NOTE | 2025-06-03 15:52 | PCM.POSTANE2 ---
Anesthesia Postop Eval I Sum Postop Eval Completion status Anesthesia document: Postop Eval 1 completed: Yes Anesthesia Postop Eval I Summary Anesthesia Postop Eval I Summary: Anesthesia Postop Eval I: Assessment Summary Airway patent Yes 06/03/25 15:27 [email or web address] Spontaneous unlabored Yes 06/03/25 15:27 [email or web address] respirations Mental status Awake,Calm 06/03/25 15:27 [email or web address] [email or web address] nausea No 06/03/25 15:27 ORIENTAL [email or web address] [email or web address] Vomiting No 06/03/25 15:27 [email or web address] [email or web address] Anesthesia Postop Eval I: Fluid Summary Crystalloid volume administer 1,100 06/03/25 15:27 [email or web address] [email or web address] (ml) Colloids volume administered ( ml) Blood Product volume administered (ml) Total IV fluid infused 1,100 06/03/25 15:27 [email or web address] [email or web address] Anesthesia Postop Eval I: Summary Notes Anesthesia Complication No 06/03/25 15:27 [email or web address] [email or web address] Anesthesia Complication Comment: Post-operative progress note Anesthesia: Postop Eval II Evaluation Mental status: Awake Pain Level: 0 nausea: No Vomiting: No
--- NOTE | 2025-06-03 16:17 | PHA.DC.MR.R ---
Pharmacy IN Med Reconciliation Pharmacy Service has performed discharge medication reconciliation for this patient. The patient's discharge medication list was reviewed for discrepancies and discrepancies were resolved. Medications at Discharge Home Medications amoxicillin 500 mg capsule 500 mg PO BID sinus infection 06/02/25 acetaminophen 325 mg tablet 650 mg (2 x 325 mg) PO Q4H PRN PRN Pain 1-10 Or Fever #0 tabs 06/03/25 oxycodone 5 mg tablet 5 - 10 mg (1 - 2 x 5 mg) PO Q4H PRN PRN Pain Score 4-10 5 days #14 tabs 06/03/25
== END 2025-06-03 20:15 | disposition home or self-care (01) | DRG 418 ==
LOC: ED 23:20 → MS3 06-03 01:48
PROVIDERS: Admitting Provider Surgery; Emergency Provider Emergency Medicine; Visit Provider Surgery
PROC: 0FT44ZZ Resection of Gallbladder, Percutaneous Endoscopic Approach (ICD-10-PCS; CPT 47610; principal; 2025-06-03 14:10)
DX: K80.12 Calculus of gallbladder with acute and chronic cholecystitis without obstruction (principal); K56.7 Ileus, unspecified
CPT/HCPCS: 74177; 74300; 76000; 76705; 80053; 81001; 83690; 84484; 85025; 88304; 93005; 99285; Q9967; A4216; J2405